=== PATIENT | male | born 1955 | race Caucasian/White ===

== ENCOUNTER 2018-06-02 17:44 | Emergency (ER) | payer SELFPAY ==
[2018-06-02 17:49] VITALS: BP 222/89; PULSE 72; RESP 20; TEMP 36.3; O2SAT 99; BMI 28.3
--- NOTE | 2018-06-02 18:02 | DI.RAD.S_ITS ---
PROCEDURE: XR CHEST 2V INDICATIONS: fall TECHNIQUE: 2 views of the chest were acquired. COMPARISON: EMILI Parrish, CHEST 2VW, 05/25/2013, 14:53. FINDINGS: Surgical changes and devices: Left-sided pacer. Lungs and pleura: No pleural effusions or pneumothorax. Lungs are clear. Mediastinum: Mediastinal contours are normal. Heart size is normal. Bones and chest wall: No suspicious bony abnormalities. Soft tissues appear unremarkable. IMPRESSION: No acute process. Dictated by: Juan Velasquez M.D. on 06/02/2018 at 18:10 Approved by: Juan Velasquez M.D. on 06/02/2018 at 18:10
--- NOTE | 2018-06-02 18:15 | ED.FALL ---
HPI - Fall <Oksana Mcmahan PA-C - Last Filed: 06/02/18 22:01> General Chief Complaint: Fall Stated Complaint: PAIN S/P FALL 2 DAYS AGO Time Seen by Provider: 06/02/18 18:00 Source: patient and family Mode of arrival: ambulatory Limitations: no limitations History of Present Illness HPI Narrative: this 62-year-old gentleman comes in due to left rib pain. On Thursday evening, he slipped on some ice, hitting the left side of his chest on a wooden railing. He states he hit hard and this knocked the wind out of him. It took him about 10 min to get up. He denies any other injury, i.e. head contusion or LOC. He states that pain is worse with cough, sneeze, deep breath, trunk movement. He has had difficulty getting comfortable enough to sleep. He has tried hmqr-yhl-psrncqz ibuprofen without relief. His notes that she gave him some type of gifd-cjn-tedeffh muscle relaxant from [facility] that did seem to help but made him sleepy. He states that he has taken muscle relaxants and opioids in the past without significant side effects. Pain is not acutely worse today, just continues to have severe discomfort and not getting better. Related Data Previous Rx's Medication Instructions Recorded cyclobenzaprine 5 mg PO Q8H #14 tab 06/02/18 oxycodone-acetaminophen [Endocet] 1 tab PO Q4H PRN #10 tab 06/02/18 Allergies Allergy/AdvReac Type Severity Reaction Status Date / Time No Known Drug Allergies Allergy Verified 06/02/18 17:55 Review of Systems <Oksana Mcmahan PA-C - Last Filed: 06/02/18 22:01> Review of Systems ROS Unobtainable: All systems reviewed & are unremarkable except as noted in HPI and below Exam <Oksana Mcmahan PA-C - Last Filed: 06/02/18 22:01> Narrative Exam Narrative: GENERAL APPEARANCE: Patient sitting comfortably, in no distress. NECK/THYROID: Neck supple LUNGS: Clear to auscultation bilaterally. CHEST: Exquisitely tender over the left mid ribs especially 7-9 at the midclavicular to lateral axillary lines. No ecchymoses HEART: Regular rate and rhythm without murmur, normal S1, S2, no S3 or S4. ABDOMEN: Soft, NT, ND EXTREMITIES: No edema. No calf tenderness NEUROLOGIC: Alert and oriented, normal speech, and coordination. Initial Vital Signs Initial Vital Signs: Vital Signs Temperature 97.3 F L 06/02/18 17:49 Pulse Rate 72 06/02/18 17:49 Respiratory Rate 20 06/02/18 17:49 Blood Pressure 222/89 H 06/02/18 17:49 Pulse Oximetry 99 06/02/18 17:49 <Josse Herring MD - Last Filed: 06/03/18 00:12> Initial Vital Signs Initial Vital Signs: Vital Signs Temperature 97.3 F L 06/02/18 17:49 Pulse Rate 72 06/02/18 17:49 Respiratory Rate 20 06/02/18 17:49 Blood Pressure 222/89 H 06/02/18 17:49 Pulse Oximetry 99 06/02/18 17:49 Course <Oksana Mcmahan PA-C - Last Filed: 06/02/18 22:01> Additional Information: patient is feeling improved and appearing more comfortable following medication. He wishes to discharge so that he can get prescriptions this evening . He will follow up with his PCP this week for recheck, and agreed to return if acutely worse again or new symptoms such as dyspnea Orders Ordered: ED Orders 06/02/18 18:02 Chest [XR chest 2V] Stat Discontinued Medications Cyclobenzaprine HCl (Flexeril) 5 mg PO NOW ONE Stop: 06/02/18 18:27 Last Admin: 06/02/18 18:46 Dose: 5 mg Ketorolac Tromethamine (Toradol) 15 mg IM NOW ONE Stop: 06/02/18 18:27 Last Admin: 06/02/18 18:45 Dose: 15 mg Oxycodone/Acetaminophen (Percocet 5/325) 2 tab PO NOW ONE Stop: 06/02/18 18:27 Last Admin: 06/02/18 18:45 Dose: 2 tab Vital Signs - 8 hr 06/02/18 17:49 06/02/18 19:09 Temperature 97.3 F L Pulse Rate 72 68 Respiratory Rate 20 16 Blood Pressure 222/89 H Blood Pressure [Left Arm] 178/68 H Pulse Oximetry 99 99 <Josse Herring MD - Last Filed: 06/03/18 00:12> Orders Ordered: ED Orders 06/02/18 18:02 Chest [XR chest 2V] Stat Discontinued Medications Cyclobenzaprine HCl (Flexeril) 5 mg PO NOW ONE Stop: 06/02/18 18:27 Last Admin: 06/02/18 18:46 Dose: 5 mg Ketorolac Tromethamine (Toradol) 15 mg IM NOW ONE Stop: 06/02/18 18:27 Last Admin: 06/02/18 18:45 Dose: 15 mg Oxycodone/Acetaminophen (Percocet 5/325) 2 tab PO NOW ONE Stop: 06/02/18 18:27 Last Admin: 06/02/18 18:45 Dose: 2 tab Vital Signs - 8 hr 06/02/18 17:49 06/02/18 19:09 Temperature 97.3 F L Pulse Rate 72 68 Respiratory Rate 20 16 Blood Pressure 222/89 H Blood Pressure [Left Arm] 178/68 H Pulse Oximetry 99 99 Discharge Plan Departure Patient Disposition: Home Clinical Impression: Contusion of rib on left side Discharge Date/Time: 06/02/18 20:18 Interventions: ED Discharge Assessment Last Done: 06/02/18 20:18 Instructions: DI for Rib Contusion Activity Restrictions/Additional Instructions: please return if you have new symptoms such as acutely worsening pain or difficulty breathing. Otherwise, please try changing to Aleve (dafy-pnn-kjcnkdg naproxen) 1 tablet twice daily since it is longer acting than ibuprofen. Continue the oxycodone /acetaminophen and cyclobenzaprine (muscle relaxant) as needed for pain, but do not drive as these may make you sleepy. Follow-up with your primary care provider in the next day or 2 for recheck and refills if needed on your prescriptions. Please do the pillow hugging technique that I should do an take deep breaths several times daily to keep your lungs inflated and working normally as people tend to take shallow breaths when they have rib injuries. Prescriptions: New cyclobenzaprine 5 mg tablet 5 mg PO Q8H Qty: 14 RF: 0 oxycodone-acetaminophen [Endocet] 5-325 mg tablet 1 tab PO Q4H PRN (Reason: acute rib pain) Qty: 10 RF: 0 Referrals: [facility] [Other] <Josse Herring MD - Last Filed: 06/03/18 00:12> Cosign ED Attending Jackature Attestation: I was working in the ER at the time of this patient's care. I was available for verbal consultation or to see the patient directly if necessary. I agree with the PA's assessment and treatment plan.
--- NOTE | 2018-06-02 18:37 | ED_ITS ---
HPI - Fall <Oksana Mcmahan PA-C - Last Filed: 06/02/18 22:01> General Chief Complaint: Fall Stated Complaint: PAIN S/P FALL 2 DAYS AGO Time Seen by Provider: 06/02/18 18:00 Source: patient and family Mode of arrival: ambulatory Limitations: no limitations History of Present Illness HPI Narrative: this 62-year-old gentleman comes in due to left rib pain. On Thursday evening, he slipped on some ice, hitting the left side of his chest on a wooden railing. He states he hit hard and this knocked the wind out of him. It took him about 10 min to get up. He denies any other injury, i.e. head contusion or LOC. He states that pain is worse with cough, sneeze, deep breath , trunk movement. He has had difficulty getting comfortable enough to sleep. He has tried ervc-zbh-pqjgxez ibuprofen without relief. His notes that she gave him some type of dbqp-xhh-breliys muscle relaxant from [facility] that did seem to help but made him sleepy. He states that he has taken muscle relaxants and opioids in the past without significant side effects. Pain is not acutely worse today, just continues to have severe discomfort and not getting better. Related Data Previous Rx's Medication Instructions Recorded cyclobenzaprine 5 mg PO Q8H #14 tab 06/02/18 oxycodone-acetaminophen [Endocet] 1 tab PO Q4H PRN #10 tab 06/02/18 Allergies Allergy/AdvReac Type Severity Reaction Status Date / Time No Known Drug Allergies Allergy Verified 06/02/18 17:55 Review of Systems <Oksana Mcmahan PA-C - Last Filed: 06/02/18 22:01> Review of Systems ROS Unobtainable: All systems reviewed & are unremarkable except as noted in HPI and below Exam <Oksana Mcmahan PA-C - Last Filed: 06/02/18 22:01> Narrative Exam Narrative: GENERAL APPEARANCE: Patient sitting comfortably, in no distress. NECK/THYROID: Neck supple LUNGS: Clear to auscultation bilaterally. CHEST: Exquisitely tender over the left mid ribs especially 7-9 at the midclavicular to lateral axillary lines. No ecchymoses HEART: Regular rate and rhythm without murmur, normal S1, S2, no S3 or S4. ABDOMEN: Soft, NT, ND EXTREMITIES: No edema. No calf tenderness NEUROLOGIC: Alert and oriented, normal speech, and coordination. Initial Vital Signs Initial Vital Signs: Vital Signs Temperature 97.3 F L 06/02/18 17:49 Pulse Rate 72 06/02/18 17:49 Respiratory Rate 20 06/02/18 17:49 Blood Pressure 222/89 H 06/02/18 17:49 Pulse Oximetry 99 06/02/18 17:49 <Josse Herring MD - Last Filed: 06/03/18 00:12> Initial Vital Signs Initial Vital Signs: Vital Signs Temperature 97.3 F L 06/02/18 17:49 Pulse Rate 72 06/02/18 17:49 Respiratory Rate 20 06/02/18 17:49 Blood Pressure 222/89 H 06/02/18 17:49 Pulse Oximetry 99 06/02/18 17:49 Course <Oksana Mcmahan PA-C - Last Filed: 06/02/18 22:01> Additional Information: patient is feeling improved and appearing more comfortable following medication. He wishes to discharge so that he can get prescriptions this evening . He will follow up with his PCP this week for recheck, and agreed to return if acutely worse again or new symptoms such as dyspnea Orders Ordered: ED Orders 06/02/18 18:02 Chest [XR chest 2V] Stat Discontinued Medications Cyclobenzaprine HCl (Flexeril) 5 mg PO NOW ONE Stop: 06/02/18 18:27 Last Admin: 06/02/18 18:46 Dose: 5 mg Ketorolac Tromethamine (Toradol) 15 mg IM NOW ONE Stop: 06/02/18 18:27 Last Admin: 06/02/18 18:45 Dose: 15 mg Oxycodone/Acetaminophen (Percocet 5/325) 2 tab PO NOW ONE Stop: 06/02/18 18:27 Last Admin: 06/02/18 18:45 Dose: 2 tab Vital Signs - 8 hr 06/02/18 17:49 06/02/18 19:09 Temperature 97.3 F L Pulse Rate 72 68 Respiratory Rate 20 16 Blood Pressure 222/89 H Blood Pressure [Left Arm] 178/68 H Pulse Oximetry 99 99 <Josse Herring MD - Last Filed: 06/03/18 00:12> Orders Ordered: ED Orders 06/02/18 18:02 Chest [XR chest 2V] Stat Discontinued Medications Cyclobenzaprine HCl (Flexeril) 5 mg PO NOW ONE Stop: 06/02/18 18:27 Last Admin: 06/02/18 18:46 Dose: 5 mg Ketorolac Tromethamine (Toradol) 15 mg IM NOW ONE Stop: 06/02/18 18:27 Last Admin: 06/02/18 18:45 Dose: 15 mg Oxycodone/Acetaminophen (Percocet 5/325) 2 tab PO NOW ONE Stop: 06/02/18 18:27 Last Admin: 06/02/18 18:45 Dose: 2 tab Vital Signs - 8 hr 06/02/18 17:49 06/02/18 19:09 Temperature 97.3 F L Pulse Rate 72 68 Respiratory Rate 20 16 Blood Pressure 222/89 H Blood Pressure [Left Arm] 178/68 H Pulse Oximetry 99 99 Discharge Plan Departure Patient Disposition: Home Clinical Impression: Contusion of rib on left side Discharge Date/Time: 06/02/18 20:18 Interventions: ED Discharge Assessment Last Done: 06/02/18 20:18 Instructions: DI for Rib Contusion Activity Restrictions/Additional Instructions: please return if you have new symptoms such as acutely worsening pain or difficulty breathing. Otherwise, please try changing to Aleve (over-the- counter naproxen) 1 tablet twice daily since it is longer acting than ibuprofen. Continue the oxycodone /acetaminophen and cyclobenzaprine (muscle relaxant) as needed for pain, but do not drive as these may make you sleepy. Follow-up with your primary care provider in the next day or 2 for recheck and refills if needed on your prescriptions. Please do the pillow hugging technique that I should do an take deep breaths several times daily to keep your lungs inflated and working normally as people tend to take shallow breaths when they have rib injuries. Prescriptions: New cyclobenzaprine 5 mg tablet 5 mg PO Q8H Qty: 14 RF: 0 oxycodone-acetaminophen [Endocet] 5-325 mg tablet 1 tab PO Q4H PRN (Reason: acute rib pain) Qty: 10 RF: 0 Referrals: [facility] [Other] <Josse Herring MD - Last Filed: 06/03/18 00:12> Cosign ED Attending Jackature Attestation: I was working in the ER at the time of this patient's care. I was available for verbal consultation or to see the patient directly if necessary. I agree with the PA's assessment and treatment plan.
[2018-06-02] MEDS: KETOROLAC 60 MG/2 ML VIAL 15 MG IM (18:45)
[2018-06-02] MEDS: OXYCODONE/ACETAMINOPHEN 5/325 TABLET 2 TAB PO (18:45)
[2018-06-02] MEDS: CYCLOBENZAPRINE 5 MG TABLET PO (18:46)
[2018-06-02 19:09] VITALS: BP 178/68; PULSE 68; RESP 16; O2SAT 99
== END 2018-06-02 20:18 | disposition home or self-care (01) ==
PROVIDERS: Emergency Provider Internal Medicine
DX: S20.212A Contusion of left front wall of thorax, initial encounter (principal); W01.0XXA Fall on same level from slipping, tripping and stumbling without subsequent striking against object, initial encounter
CPT/HCPCS: 71046; 99282; 99283; J1885